=== PATIENT | male | born 1950 | race Caucasian/White ===

== ENCOUNTER 2019-04-13 06:37 | Observation (INO) ==
[2019-04-13] MEDS ORDERED: Aspirin 81 MG TAB.CHEW PO ONE (06:42)
[2019-04-13 06:55] LABS: Basophils # 0.1 K/mcL (0.0-0.2); Basophils % 0.7 %; Eosinophils # 0.2 K/mcL (0.0-0.6); Eosinophils % 2.4 %; Hematocrit 42.3 % (37.5-50.1); Hemoglobin 14.2 g/dL (12.9-16.9); Immature Granulocytes % 0.3 % (0-4); Lymphocytes # 1.3 K/mcL (0.6-4.6); Lymphocytes % 17.5 %; Mean Corpuscular HGB Conc 33.6 g/dL (31.6-35.5); Mean Corpuscular Hemoglobin 29.5 pg (28.0-33.3); Mean Corpuscular Volume 87.9 fL (83.0-100.0); Mean Platelet Volume 9.3 fL (9.4-12.4); Monocytes # 0.8 K/mcL (0.0-1.3); Monocytes % 10.5 %; Neutrophils # 5.2 K/mcL (1.6-8.9); Platelet Count 244 K/mcL (140-400); Red Blood Count 4.81 M/mcL (4.19-5.50); Red Cell Distribution Width 12.7 % (11.5-14.5); Segmented Neutrophils % 68.6 %; White Blood Count 7.6 K/mcL (4.3-11.1)
[2019-04-13] MEDS: Nitroglycerin 0.4 MG TAB.SUBL SL SCH ×3 (06:55→13:15)
[2019-04-13 07:05] LABS: INR 1.1; Prothrombin Time 12.8 Seconds (9.4-12.1)
[2019-04-13 07:07] LABS: Activated Partial Thrombo Time 35.9 Seconds (26.0-36.0)
[2019-04-13 07:19] LABS: BUN/Creatinine Ratio 30 (6-26); Blood Urea Nitrogen 28 mg/dL (8-23); Calcium 9.6 mg/dL (8.6-10.3); Carbon Dioxide 28 mEq/L (23-29); Chloride 106 mEq/L (98-107); Glucose 152 mg/dL (70-105); Osmolality,Calculated 302 (280-300); Potassium 3.9 mEq/L (3.5-5.1); Sodium 142 mEq/L (136-145); Troponin I < 0.03 ng/mL (< 0.04); eGFR For African Americans > 60 (> 60); eGFR For Non-African Americans > 60 (> 60)
[2019-04-13] MEDS ORDERED: *HR* FentaNYL (PF) 100 MCG/2 ML VIAL IVP ONE (07:20)
[2019-04-13] MEDS ORDERED: GI Cocktail 40 ML EACH PO ONE (07:36)
[2019-04-13] MEDS ORDERED: Ondansetron 4 MG/2 ML VIAL IVP PRN (08:54)
[2019-04-13] MEDS ORDERED: Nitroglycerin 0.4 MG TAB.SUBL SL PRN (08:56)
[2019-04-13] MEDS ORDERED: Isosorbide MONOnitrate (24 HR) 30 MG TAB.ER.24H PO SCH (09:00)
[2019-04-13] MEDS ORDERED: Aspirin Enteric Coated 81 MG Tablet PO SCH (09:00)
[2019-04-13] MEDS ORDERED: Multivit/Ca/Min/Fe/FA 1 TAB TABLET PO SCH (09:00)
[2019-04-13] MEDS ORDERED: Morphine Sulfate 2 MG/ML SYRINGE IVP ONE (09:45)
[2019-04-13] MEDS ORDERED: Perflutren Lipid Microsphere 1.3 ML in 0.9 % Sodium Chloride 8.7 ML IVP ONE (11:42)
[2019-04-13 16:16] VITALS: BP 141/75
[2019-04-13 17:40] LABS: Alanine Aminotransferase 21 Units/L (7-52); Albumin 4.1 g/dL (3.5-5.7); Albumin/Globulin Ratio 1.6 (1.1-2.2); Alkaline Phosphatase 41 Units/L (34-104); Aspartate Amino Transferase 11 Units/L (13-39); Bilirubin,Direct 0.1 mg/dL (0.0-0.2); Bilirubin,Indirect 0.3 mg/dL (0.0-1.0); Bilirubin,Total 0.4 mg/dL (0.3-1.0); Globulin 2.6 g/dL (2.4-3.5); Lipase 14 Units/L (11-82); Total Protein 6.7 g/dL (6.4-8.9); Troponin I < 0.03 ng/mL (< 0.04)
[2019-04-13] MEDS ORDERED: *HR* Heparin 5,000 UNIT/ML VIAL SQ SCH (18:00)
== END 2019-04-13 18:42 | disposition home or self-care (01) ==
LOC: SUATTDRO → EMEROOARM 06:37 → CDU 06:37
PROVIDERS: ADMIT Internal Medicine; ATTEND Internal Medicine

== ENCOUNTER 2021-06-02 09:15 | Observation (INO) ==
[2021-06-02] MEDS ORDERED: Aspirin 325 MG TABLET PO ONE (09:49)
[2021-06-02] MEDS ORDERED: Nitroglycerin 0.4 MG TAB.SUBL SL PRN (09:49)
[2021-06-02 10:14] LABS: Basophils # 0.1 K/mcL (0.0-0.2); Eosinophils # 0.3 K/mcL (0.0-0.6); Eosinophils % 2.9 %; Hematocrit 41.6 % (37.5-50.1); Hemoglobin 13.5 g/dL (12.9-16.9); Immature Granulocytes % 1.9 % (0-4); Lymphocytes # 1.2 K/mcL (0.6-4.6); Lymphocytes % 14.3 %; Mean Corpuscular HGB Conc 32.5 g/dL (31.6-35.5); Mean Corpuscular Hemoglobin 29.5 pg (28.0-33.3); Mean Platelet Volume 9.5 fL (9.4-12.4); Monocytes # 0.8 K/mcL (0.0-1.3); Monocytes % 8.8 %; Neutrophils # 6.1 K/mcL (1.6-8.9); Platelet Count 263 K/mcL (140-400); Red Blood Count 4.57 M/mcL (4.19-5.50); Red Cell Distribution Width 13.6 % (11.5-14.5); Segmented Neutrophils % 71.1 %; White Blood Count 8.6 K/mcL (4.3-11.1)
[2021-06-02 10:24] LABS: INR 1.1; Prothrombin Time 11.7 Seconds (9.4-12.1)
[2021-06-02 10:27] LABS: Activated Partial Thrombo Time 30.8 Seconds (26.0-36.0)
[2021-06-02 10:35] LABS: BUN/Creatinine Ratio 20 (6-26); Blood Urea Nitrogen 22 mg/dL (8-23); Calcium 9.3 mg/dL (8.6-10.3); Carbon Dioxide 28 mEq/L (23-29); Chloride 100 mEq/L (98-107); Glucose 108 mg/dL (70-105); Osmolality,Calculated 286 (280-300); Potassium 3.9 mEq/L (3.5-5.1); Sodium 136 mEq/L (136-145); eGFR For African Americans > 60 (> 60); eGFR For Non-African Americans > 60 (> 60)
[2021-06-02 10:37] LABS: Troponin I < 0.03 ng/mL (< 0.04)
[2021-06-02] MEDS ORDERED: Naloxone 0.4 MG/ML INJ IVP PRN (12:30)
[2021-06-02] MEDS ORDERED: Gabapentin 300 MG CAPSULE PO SCH (21:00)
[2021-06-02] MEDS: Spironolactone 25 MG TABLET PO SCH (22:27)
[2021-06-03 01:42] LABS: Basophils # 0.1 K/mcL (0.0-0.2); Basophils % 0.7 %; Eosinophils # 0.3 K/mcL (0.0-0.6); Eosinophils % 3.5 %; Hematocrit 43.9 % (37.5-50.1); Immature Granulocytes % 1.3 % (0-4); Lymphocytes # 1.6 K/mcL (0.6-4.6); Lymphocytes % 16.5 %; Mean Corpuscular HGB Conc 31.9 g/dL (31.6-35.5); Mean Corpuscular Volume 91.1 fL (83.0-100.0); Mean Platelet Volume 9.3 fL (9.4-12.4); Monocytes # 0.8 K/mcL (0.0-1.3); Monocytes % 8.3 %; Neutrophils # 6.7 K/mcL (1.6-8.9); Platelet Count 281 K/mcL (140-400); Red Blood Count 4.82 M/mcL (4.19-5.50); Red Cell Distribution Width 13.7 % (11.5-14.5); Segmented Neutrophils % 69.7 %; White Blood Count 9.6 K/mcL (4.3-11.1)
[2021-06-03 01:59] LABS: BUN/Creatinine Ratio 20 (6-26); Blood Urea Nitrogen 24 mg/dL (8-23); Calcium 9.6 mg/dL (8.6-10.3); Carbon Dioxide 29 mEq/L (23-29); Chloride 96 mEq/L (98-107); Glucose 108 mg/dL (70-105); Osmolality,Calculated 285 (280-300); Potassium 4.3 mEq/L (3.5-5.1); Sodium 135 mEq/L (136-145); eGFR For African Americans > 60 (> 60); eGFR For Non-African Americans > 60 (> 60)
[2021-06-03] MEDS ORDERED: Regadenoson 0.4 MG/5 ML SYRINGE IVP ONE (06:20)
[2021-06-03 07:21] VITALS: O2SAT 94
[2021-06-03] MEDS ORDERED: Gabapentin 300 MG CAPSULE PO SCH (09:00)
[2021-06-03] MEDS ORDERED: Aspirin Enteric Coated 81 MG Tablet PO SCH (09:00)
[2021-06-03] MEDS ORDERED: Furosemide 20 MG TABLET PO SCH (09:00)
[2021-06-03] MEDS: Spironolactone 25 MG TABLET PO SCH (09:50)
[2021-06-03 11:54] VITALS: BP 114/79; PULSE 73; TEMP 97.9
[2021-06-03] MEDS ORDERED: Isovue-370 500 ML BOTTLE IVP ONE (12:51)
== END 2021-06-03 15:37 | disposition home or self-care (01) ==
LOC: EMEROOARM 09:15 → 2ANU 09:15 → SUATTDRO 11:48 → 2ANU 13:30
PROVIDERS: ADMIT Internal Medicine; ATTEND Hospitalist